=== PATIENT | male | born 1965 | race Two or more races ===

== ENCOUNTER 2017-01-09 14:55 | Inpatient (IN) | payer OTHER ==
[2017-01-09 16:06] VITALS: BMI 25.2
--- NOTE | 2017-01-09 17:38 | HP ---
CIWA Score - CIWA Score Nausea/Vomitin Muscle Tremors: 3 Anxiety: 3 Agitation: 3 Paroxysmal Sweats: 3 Orientation: 0-Oriented Tacttile Disturbances: 0-None Auditory Disturbances: 0-None Visual Disturbances: 0-None Headache: 2-Mild CIWA-Ar Total Score: 17 Admission ROS S - HPI Chief Complaint: alcohol withdrawal symptoms Allergies/Adverse Reactions: Allergies Allergy/AdvReac Type Severity Reaction Status Date / Time No Known Allergies Allergy Verified 01/09/17 17:21 History of Present Illness: 51 yo homeless m with h/o opioid use disordr on MMTP 110mg daily last day of medication today at [facility] requesting inpateint detoxification forma lcohol. Reports alcohol withdrwal syndrome when he stops drinking and has had withdrawal seizures in past. PMHX hep c, depression, schizoaffective do on medications. no suicidal ideation at this time ahas attempted suicide in past. longest sober while he was incarcerated. Pateint reorts falling on left hand/srist and is now c/o pain and swelling. woudl like to be admitted and start detox rather than go to ED for xray tonight. Advised of likelihood of fracture requirign orthopedic care. Exam Limitations: No Limitations - Ebola screening Have you traveled outside of the country in the last 21 days: No (N) Have you had contact with anyone from an Ebola affected area: No Have you been sick,other than usual withdrawal symptoms: No Do you have a fever: No - Review of Systems Constitutional: Chills, Diaphoresis, Changes in sleep, Unintentional Wgt. Loss EENT: reports: No Symptoms Reported Respiratory: reports: Other (chest tightness) Cardiac: reports: Palpitations, Chest Tightness GI: reports: Constipated, Nausea, Poor Appetite, Poor Fluid Intake, Indigestion , Abdominal cramping : reports: No Symptoms Reported Musculoskeletal: reports: Back Pain, Joint Pain, Joint Swelling, Joint Stiffness (fell on left arm) Integumentary: reports: Flushing, Sweating Neuro: reports: Headache, Numbness, Seizure (withdrawal seizure many years ago) , Tingling, Tremors Endocrine: reports: No Symptoms Reported Hematology: reports: No Symptoms Reported Psychiatric: reports: Judgement Intact, Mood/Affect Appropiate, Orientated x3, Anxious, Depressed Other Systems: Reviewed and Negative Patient History - Patient Medical History Hx Anemia: No Hx Asthma: Yes Hx Chronic Obstructive Pulmonary Disease (COPD): No Hx Cancer: No Hx Cardiac Disorders: No Hx Congestive Heart Failure: No Hx Hypertension: No Hx Hypercholesterolemia: No Hx Pacemaker: No HX Cerebrovascular Accident: No Hx Seizures: Yes (withdrawal seizures ) Hx Dementia: No Hx Diabetes: No Hx Gastrointestinal Disorders: No Hx Liver Disease: No Hx Genitourinary Disorders: No Hx Sexually Transmitted Disorders: No Hx Renal Disease (ESRD): No Hx Thyroid Disease: No Hx Human Immunodeficiency Virus (HIV): No Hx Hepatitis C: Yes Hx Depression: Yes Hx Suicide Attempt: No Hx Bipolar Disorder: Yes Hx Schizophrenia: Yes Other Medical History: schizoaffectiv e do no suicidal ideation - Patient Surgical History Past Surgical History: Yes Hx Neurologic Surgery: No Hx Cataract Extraction: No Hx Cardiac Surgery: No Hx Lung Surgery: No Hx Breast Surgery: No Hx Breast Biopsy: No Hx Abdominal Surgery: No Hx Appendectomy: Yes Hx Cholecystectomy: No Hx Genitourinary Surgery: No Hx Section: No Hx Orthopedic Surgery: Yes (fx left leg) Anesthesia Reaction: No - PPD History Previous Implant?: Yes Documented Results: Negative w/o proof Implanted On Prior [facility] Admission?: No PPD to be Administered?: Yes - Reproductive History Patient is a Female of Child Bearing Age (11 -55 yrs old): No Patient : No - Smoking Cessation Smoking history: Current every day smoker Have you smoked in the past 12 months: Yes Aproximately how many cigarettes per day: 20 Hx Chewing Tobacco Use: No Initiated information on smoking cessation: Yes 'Breaking Loose' booklet given: 01/09/17 - Substance & Tx. History Hx Alcohol Use: Yes Hx Substance Use: Yes Substance Use Type: Alcohol, Cocaine, Opiates, Prescribed, Tranquilizers Hx Substance Use Treatment: Yes (detox and rehab in past, MMTP at present) - Substances Abused Alcohol Route: Oral Frequency: Daily Amount used: 2 pints Age of first use: 19 Date of Last Use: 01/08/17 Crack Route: Smoking Frequency: 3-6 times per week Amount used: $30 Age of first use: 19 Date of Last Use: 01/08/17 Heroin Route: Inhalation Frequency: 3-6 times per week Amount used: various Age of first use: 18 Date of Last Use: 01/05/17 Family Disease History - Family Disease History Family Disease History: Other: Father (alcohol , cocaine), Mother Admission Physical Exam [facility] - Vital Signs Vital Signs: Vital Signs - 24 hr 01/09/17 15:59 Temperature 96.4 F L Pulse Rate 63 Respiratory 18 Rate Blood Pressure 109/73 - Physical General Appearance: Yes: Nourished, Appropriately Dressed, Disheveled, Mild Distress, Thin, Tremorous, Irritable, Sweating, Anxious HEENTM: Yes: Within Normal Limits, EOMI, Hearing grossly Normal, Normal ENT Inspection, Normocephalic, Normal Voice, JENNIFER, Pharynx Normal Respiratory: Yes: Within Normal Limits, Chest Non-Tender, Lungs Clear, Normal Breath Sounds, No Respiratory Distress, No Accessory Muscle Use Neck: Yes: Within Normal Limits, No masses,lesions,Nodules, Supple, Trachea in good position Breast: Yes: Breast Exam Deferred Cardiology: Yes: Within Normal Limits, Regular Rhythm, Regular Rate, S1, S2 Abdominal: Yes: Normal Bowel Sounds, Non Tender, Flat, Soft, Increased Bowel Sounds Genitourinary: Yes: Within Normal Limits Back: Yes: Within Normal Limits, Normal Inspection Musculoskeletal: Yes: Gait Steady, Pelvis Stable, Other (limited range of motion left wrist 2/2 pain) Extremities: Yes: Normal Capillary Refill, Normal Range of Motion, Tremors, Swelling (left wrist tenderness and swelling of forearm, liit rom, pain on movement 8/10) Neurological: Yes: peoplesoft hcm developer II-XII NML intact, Fully Oriented, Alert, Motor Strength 5/5, Normal Response, Depressed Affect Integumentary: Yes: Normal Color, Warm, Diaphoresis, Moist Lymphatic: Yes: Within Normal Limits - Addiitonal Findings: alcohol withdrawal sx, fx left wrist/forearm - Diagnostic (1) Alcohol dependence with uncomplicated withdrawal Current Visit: Yes Status: Acute (2) Opioid dependence on agonist therapy Current Visit: Yes Status: Acute (3) Nicotine dependence Current Visit: Yes Status: Acute (4) Schizoaffective disorder Current Visit: Yes Status: Acute (5) Wrist fracture, left Current Visit: Yes Status: Acute (6) Seizure Current Visit: Yes Status: Acute (7) Hepatitis C Current Visit: Yes Status: Acute (8) Crack cocaine use Current Visit: Yes Status: Acute Cleared for Admission [facility] - Detox or Rehab [facility] Level of Care: Medically Managed [facility]ox [facility] Breath Alcohol Content Breath Alcohol Content: 0 Urine Drug Screen - Results Drug Screen Negative: No Urine Drug Screen Results: ERIK-Cocaine, MTD-Methadone, TCA-Tricyclic Antidepress
[2017-01-09] MEDS ORDERED: chlordiazePOXIDE HCL 25 MG CAPSULE PO PRN (17:41)
[2017-01-09] MEDS ORDERED: LOPERAMIDE HCL 2 MG CAPSULE PO PRN (17:41)
[2017-01-09] MEDS ORDERED: MAGNESIUM HYDROX 2400MG/30ML ORAL SUSPENSION 30 ML CUP PO PRN (17:41)
[2017-01-09] MEDS ORDERED: guaiFENesin/D-METHORPHAN HB 10 ML UNIT-DOSE CUPS PO PRN (17:41)
[2017-01-09] MEDS ORDERED: MAG HYDROX/AL HYDROX/SIMETH 30 ML UNIT-DOSE CUP PO PRN (17:41)
[2017-01-09] MEDS ORDERED: MENTHOL/PHENOL 1 EACH UD MM PRN (17:41)
[2017-01-09] MEDS ORDERED: P-EPHED 60MG/TRIPROLIDI 2.5MG TABLET PO PRN (17:41)
[2017-01-09] MEDS ORDERED: NICOTINE POLACRILEX 4 MG GUM BC PRN (17:41)
[2017-01-09] MEDS ORDERED: MAGNESIUM CITRATE 300 ML BOTTLE PO PRN (17:41)
[2017-01-09] MEDS ORDERED: CYCLOBENZAPRINE HCL 10 MG TABLET (FP) PO PRN (17:43)
[2017-01-09] MEDS ORDERED: chlordiazePOXIDE HCL 25 MG CAPSULE PO ONE (18:15)
[2017-01-09] MEDS: NICOTINE 21 MG/24 HOURS TOPICAL PATCH TD SCH (18:32)
[2017-01-09] MEDS: PANTOPRAZOLE 40 MG TABLET (FP) PO SCH (18:32)
[2017-01-09] MEDS: ACETAMINOPHEN 325 MG TABLET (FP) PO PRN (18:34)
[2017-01-09] MEDS: DOCUSATE SODIUM 100 MG CAPSULE (FP) PO SCH (22:07)
[2017-01-09] MEDS: NAPROXEN 500 MG TABLET (FP) PO SCH (22:07)
[2017-01-09] MEDS: THIAMINE HCL 100 MG TABLET (FP) PO SCH (22:07)
[2017-01-09] MEDS: chlordiazePOXIDE HCL 25 MG CAPSULE PO SCH (22:07)
[2017-01-09 23:04] LABS: URINE APPEARANCE CLEAR; URINE BILIRUBIN NEGATIVE (NEGATIVE); URINE BLOOD NEGATIVE (NEGATIVE); URINE COLOR YELLOW; URINE GLUCOSE (UA) NEGATIVE (NEGATIVE); URINE KETONE NEGATIVE (NEGATIVE); URINE NITRITE NEGATIVE (NEGATIVE); URINE PROTEIN NEGATIVE (NEGATIVE); URINE UROBILINOGEN NEGATIVE mg/dL (0.2-1.0)
[2017-01-10] MEDS: ACETAMINOPHEN 325 MG TABLET (FP) PO PRN (05:05)
[2017-01-10] MEDS: chlordiazePOXIDE HCL 25 MG CAPSULE PO SCH ×4 (05:05→22:48)
[2017-01-10] MEDS ORDERED: METHADONE HCL 10 MG TABLET PO SCH (06:00)
[2017-01-10] MEDS ORDERED: METHADONE HCL 40 MG DISPERSABLE TABLET ONE (08:32)
[2017-01-10] MEDS ORDERED: METHADONE HCL 10 MG TABLET ONE (08:32)
[2017-01-10 09:59] LABS: MCH 30.4 pg (25.7-33.7); MCHC 33.4 g/dl (32.0-35.9); MEAN CELL VOLUME 91.1 fl (80-96); MEAN PLT VOLUME 8.1 fl (7.5-11.1); PLATELET COUNT 233 K/MM3 (134-434); RDW 13.6 % (11.9-15.9); WHITE BLOOD COUNT 9.7 K/mm3 (4.0-10.0)
[2017-01-10 10:05] LABS: ALBUMIN 3.5 g/dl (3.4-5.0); ANION GAP 4 (8-16); CALCIUM 8.3 mg/dL (8.5-10.1); CO2 30 mmol/L (21-32); CREATININE 0.6 mg/dL (0.7-1.3); GLUCOSE,RANDOM 83 mg/dL (74-106); SGOT/AST 40 U/L (15-37); SGPT/ALT 32 U/L (12-78)
[2017-01-10 10:07] LABS: ALK PHOS 107 U/L (45-117); BILIRUBIN,TOTAL 0.4 mg/dL (0.2-1.0); TOT PROT 6.6 g/dl (6.4-8.2)
--- NOTE | 2017-01-10 10:07 | PN ---
[facility] CIWA - CIWA Score Nausea/Vomitin-No Nausea/No Vomiting Muscle Tremors: 4-Moderate,w/Arms Extend Anxiety: 4-Mod. Anxious/Guarded Agitation: 4-Moderately Restless Paroxysmal Sweats: 1-Minimal Palms Moist Orientation: 0-Oriented Tacttile Disturbances: 3-Moderate Itch/Numb/Burn Auditory Disturbances: 0-None Visual Disturbances: 0-None Headache: 0-None Present CIWA-Ar Total Score: 16 S Progress Note (SOAP) Subjective: ANXIETY,SWEATS,TREMORS,IRRITABILITY, INTERMITTENT SLEEP. Objective: 01/10/17 10:07 Vital Signs Temperature 95.8 F L 01/10/17 09:01 Pulse Rate 61 01/10/17 09:01 Respiratory Rate 18 01/10/17 09:01 Blood Pressure 119/75 01/10/17 09:01 O2 Sat by Pulse Oximetry (%) Laboratory Last Values Sodium 139 mmol/L (136-145) 01/10/17 07:00 Potassium 4.2 mmol/L (3.5-5.1) 01/10/17 07:00 Chloride 105 mmol/L (98-107) 01/10/17 07:00 Carbon Dioxide 30 mmol/L (21-32) 01/10/17 07:00 Anion Gap 4 (8-16) L 01/10/17 07:00 BUN 13 mg/dL (7-18) 01/10/17 07:00 Creatinine 0.6 mg/dL (0.7-1.3) L 01/10/17 07:00 Creat Clearance w eGFR > 60 (>60) 01/10/17 07:00 Random Glucose 83 mg/dL (74-106) 01/10/17 07:00 Calcium 8.3 mg/dL (8.5-10.1) L 01/10/17 07:00 AST 40 U/L (15-37) H 01/10/17 07:00 ALT 32 U/L (12-78) 01/10/17 07:00 Albumin 3.5 g/dl (3.4-5.0) 01/10/17 07:00 Urine Color Yellow 01/09/17 15:50 Urine Appearance Clear 01/09/17 15:50 Urine pH 5.0 (5.0-8.0) 01/09/17 15:50 Ur Specific [place] 1.023 (1.001-1.035) 01/09/17 15:50 Urine Protein Negative (NEGATIVE) 01/09/17 15:50 Urine Glucose (UA) Negative (NEGATIVE) 01/09/17 15:50 Urine Ketones Negative (NEGATIVE) 01/09/17 15:50 Urine Blood Negative (NEGATIVE) 01/09/17 15:50 Urine Nitrite Negative (NEGATIVE) 01/09/17 15:50 Urine Bilirubin Negative (NEGATIVE) 01/09/17 15:50 Urine Urobilinogen Negative mg/dL (0.2-1.0) 01/09/17 15:50 Assessment: 01/10/17 10:07 WITHDRAWAL SX Plan: CONTINUE DETOX
[2017-01-10] MEDS: METHADONE 80 MG, METHADONE 30 MG PO SCH (10:12)
[2017-01-10] MEDS: NICOTINE 21 MG/24 HOURS TOPICAL PATCH TD SCH (10:13)
[2017-01-10] MEDS: NAPROXEN 500 MG TABLET (FP) PO SCH ×2 (10:13→22:40)
[2017-01-10] MEDS: PANTOPRAZOLE 40 MG TABLET (FP) PO SCH (10:13)
[2017-01-10] MEDS: PRENATAL VITAMINS W/ FOLIC ACID TABLET (FP) PO SCH (10:13)
[2017-01-10 11:34] LABS: URINE LEUK ESTERASE Negative (NEGATIVE)
[2017-01-10 11:58] LABS: SICKLE CELL SCREEN NEGATIVE (NEGATIVE)
--- NOTE | 2017-01-10 11:59 | PN ---
[facility] Progress Note Note: PT TO BE TRANSFERED TO [facility] FOR ORTHOPEDIC EVALUATION AND TREATMENT OF FRACTURE LEFT DISTAL RADIUS PER XRAY REPORT DONE TODAY. ADDENDUM: PT WAS ADMITTED YESTERDAY WITH LEFT FOREARM SWELLING AND REDNESS DUE TO REPORTED FALL PRIOR TO COMING INTO DETOX(SEE ADMISSION H/P). XRAY ORDERED ON ADMISSION WAS DONE TODAY WITH ABOVE FINDINGS. SPOKE TO DR ARREDONDO AT [facility] ON PATIENTS CASE. TRANSFER BY AMBULANCE FOR ORTHOPEDIC CONSULT. PT MAY RETURN TO [facility] TO CONTINUE DETOX IF CLEARED TO DO SO.
[2017-01-10] MEDS ORDERED: PNEUMOC 13-VAL CONJ-DIP CRM/PF 0.5 ML DISP.SYRIN IM ONE (12:00)
--- NOTE | 2017-01-10 13:08 | EKG ---
Test Reason : Blood Pressure : / mmHG Vent. Rate : 061 BPM Atrial Rate : 061 BPM P-R Int : 166 ms QRS Dur : 088 ms QT Int : 464 ms P-R-T Axes : 080 -12 056 degrees QTc Int : 467 ms NORMAL SINUS RHYTHM NORMAL ECG NO PREVIOUS ECGS AVAILABLE Confirmed by HERSON STANLEY MD ([id number]) on 01/10/2017 1:08:09 PM Referred By: Confirmed By:HERSON STANLEY MD
--- NOTE | 2017-01-10 13:35 | PN ---
[facility] Progress Note Note: Platform Builder approached patient bedside and noticed patient was not inside his room. Platform Builder attempted to located patient but was informed by staff that patient was transferred to [facility].
[2017-01-10] MEDS: DOCUSATE SODIUM 100 MG CAPSULE (FP) PO SCH (22:20)
[2017-01-10] MEDS: THIAMINE HCL 100 MG TABLET (FP) PO SCH (22:48)
[2017-01-11] MEDS ORDERED: METHADONE HCL 10 MG TABLET ONE (02:56)
[2017-01-11] MEDS ORDERED: METHADONE HCL 40 MG DISPERSABLE TABLET ONE (02:57)
[2017-01-11] MEDS: chlordiazePOXIDE HCL 25 MG CAPSULE PO SCH ×3 (05:09→17:21)
[2017-01-11] MEDS: METHADONE 80 MG, METHADONE 30 MG PO SCH (05:10)
[2017-01-11] MEDS: NICOTINE 21 MG/24 HOURS TOPICAL PATCH TD SCH (10:10)
[2017-01-11] MEDS: PANTOPRAZOLE 40 MG TABLET (FP) PO SCH (10:10)
[2017-01-11] MEDS: PRENATAL VITAMINS W/ FOLIC ACID TABLET (FP) PO SCH (10:10)
[2017-01-11] MEDS: NAPROXEN 500 MG TABLET (FP) PO SCH ×2 (10:10→22:12)
--- NOTE | 2017-01-11 10:10 | PN ---
[facility] CIWA - CIWA Score Nausea/Vomitin-No Nausea/No Vomiting Muscle Tremors: 4-Moderate,w/Arms Extend Anxiety: 4-Mod. Anxious/Guarded Agitation: 4-Moderately Restless Paroxysmal Sweats: 1-Minimal Palms Moist Orientation: 0-Oriented Tacttile Disturbances: 3-Moderate Itch/Numb/Burn Auditory Disturbances: 0-None Visual Disturbances: 0-None Headache: 0-None Present CIWA-Ar Total Score: 16 S Progress Note (SOAP) Subjective: ANXIETY,SWEATS, TREMORS, SWEATS. PT CAME BACK YESTERDAY FROM [facility] WITH A CAST ON LEFT ARM. NAD. Objective: 01/11/17 10:09 Vital Signs Temperature 97.0 F L 01/11/17 06:01 Pulse Rate 58 L 01/11/17 06:01 Respiratory Rate 16 01/11/17 06:01 Blood Pressure 99/65 01/11/17 06:01 O2 Sat by Pulse Oximetry (%) Laboratory Last Values WBC 9.7 K/mm3 (4.0-10.0) 01/10/17 07:00 RBC 3.74 M/mm3 (4.00-5.60) L 01/10/17 07:00 Hgb 11.4 GM/dL (11.7-16.9) L 01/10/17 07:00 Hct 34.1 % (35.4-49) L 01/10/17 07:00 MCV 91.1 fl (80-96) 01/10/17 07:00 MCH 30.4 pg (25.7-33.7) 01/10/17 07:00 MCHC 33.4 g/dl (32.0-35.9) 01/10/17 07:00 RDW 13.6 % (11.9-15.9) 01/10/17 07:00 Plt Count 233 K/MM3 (134-434) 01/10/17 07:00 MPV 8.1 fl (7.5-11.1) 01/10/17 07:00 Sickle Cell Screen Negative (NEGATIVE) 01/10/17 07:00 Sodium 139 mmol/L (136-145) 01/10/17 07:00 Potassium 4.2 mmol/L (3.5-5.1) 01/10/17 07:00 Chloride 105 mmol/L (98-107) 01/10/17 07:00 Carbon Dioxide 30 mmol/L (21-32) 01/10/17 07:00 Anion Gap 4 (8-16) L 01/10/17 07:00 BUN 13 mg/dL (7-18) 01/10/17 07:00 Creatinine 0.6 mg/dL (0.7-1.3) L 01/10/17 07:00 Creat Clearance w eGFR > 60 (>60) 01/10/17 07:00 Random Glucose 83 mg/dL (74-106) 01/10/17 07:00 Calcium 8.3 mg/dL (8.5-10.1) L 01/10/17 07:00 Total Bilirubin 0.4 mg/dL (0.2-1.0) 01/10/17 07:00 AST 40 U/L (15-37) H 01/10/17 07:00 ALT 32 U/L (12-78) 01/10/17 07:00 Alkaline Phosphatase 107 U/L (45-117) 01/10/17 07:00 Total Protein 6.6 g/dl (6.4-8.2) 01/10/17 07:00 Albumin 3.5 g/dl (3.4-5.0) 01/10/17 07:00 Urine Color Yellow 01/09/17 15:50 Urine Appearance Clear 01/09/17 15:50 Urine pH 5.0 (5.0-8.0) 01/09/17 15:50 Ur Specific [place] 1.023 (1.001-1.035) 01/09/17 15:50 Urine Protein Negative (NEGATIVE) 01/09/17 15:50 Urine Glucose (UA) Negative (NEGATIVE) 01/09/17 15:50 Urine Ketones Negative (NEGATIVE) 01/09/17 15:50 Urine Blood Negative (NEGATIVE) 01/09/17 15:50 Urine Nitrite Negative (NEGATIVE) 01/09/17 15:50 Urine Bilirubin Negative (NEGATIVE) 01/09/17 15:50 Urine Urobilinogen Negative mg/dL (0.2-1.0) 01/09/17 15:50 Ur Leukocyte Esterase Negative (NEGATIVE) 01/09/17 15:50 RPR Titer Nonreactive (NONREACTIVE) 01/10/17 07:00 Assessment: 01/11/17 10:10 WITHDRAWAL SX Plan: CONTINUE DETOX
[2017-01-11] MEDS: DOCUSATE SODIUM 100 MG CAPSULE (FP) PO SCH (22:11)
[2017-01-11] MEDS: THIAMINE HCL 100 MG TABLET (FP) PO SCH (22:12)
[2017-01-11] MEDS: chlordiazePOXIDE 5 MG CAPSULE PO SCH (22:12)
[2017-01-11] MEDS: hydrOXYzine PAMOATE 50 MG CAPSULE (FP) PO PRN (22:16)
[2017-01-12] MEDS ORDERED: METHADONE HCL 10 MG TABLET ONE (04:23)
[2017-01-12] MEDS ORDERED: METHADONE HCL 40 MG DISPERSABLE TABLET ONE (04:24)
[2017-01-12] MEDS: METHADONE 80 MG, METHADONE 30 MG PO SCH (05:44)
[2017-01-12] MEDS: chlordiazePOXIDE 5 MG CAPSULE PO SCH ×3 (05:46→17:31)
[2017-01-12] MEDS: NICOTINE 21 MG/24 HOURS TOPICAL PATCH TD SCH (10:34)
[2017-01-12] MEDS: NAPROXEN 500 MG TABLET (FP) PO SCH ×2 (10:35→22:11)
[2017-01-12] MEDS: PRENATAL VITAMINS W/ FOLIC ACID TABLET (FP) PO SCH (10:35)
[2017-01-12] MEDS: PANTOPRAZOLE 40 MG TABLET (FP) PO SCH (10:35)
--- NOTE | 2017-01-12 15:03 | PN ---
[facility] Progress Note (SOAP) Subjective: Fatigue, Tremors, Sweating. Objective: PT. A & O X 2 (UNCERTAIN ABOUT CURRENT LOCATION). PT. OBSERVED AMBULATING ON UNIT. NO ACUTE DISTRESS. 01/12/17 15:00 Vital Signs Temperature 96.2 F L 01/12/17 13:04 Pulse Rate 77 01/12/17 13:04 Respiratory Rate 18 01/12/17 13:04 Blood Pressure 105/74 01/12/17 13:04 O2 Sat by Pulse Oximetry (%) Laboratory Tests 01/09/17 01/10/17 01/10/17 15:50 07:00 07:00 WBC 9.7 RBC 3.74 L Hgb 11.4 L Hct 34.1 L MCV 91.1 MCH 30.4 MCHC 33.4 RDW 13.6 Plt Count 233 MPV 8.1 Sickle Cell Screen Negative Sodium 139 Potassium 4.2 Chloride 105 Carbon Dioxide 30 Anion Gap 4 L BUN 13 Creatinine 0.6 L Creat Clearance w eGFR > 60 Random Glucose 83 Calcium 8.3 L Total Bilirubin 0.4 AST 40 H ALT 32 Alkaline Phosphatase 107 Total Protein 6.6 Albumin 3.5 Urine Color Yellow Urine Appearance Clear Urine pH 5.0 Ur Specific [place] 1.023 Urine Protein Negative Urine Glucose (UA) Negative Urine Ketones Negative Urine Blood Negative Urine Nitrite Negative Urine Bilirubin Negative Urine Urobilinogen Negative Ur Leukocyte Esterase Negative RPR Titer 01/10/17 07:00 WBC RBC Hgb Hct MCV MCH MCHC RDW Plt Count MPV Sickle Cell Screen Sodium Potassium Chloride Carbon Dioxide Anion Gap BUN Creatinine Creat Clearance w eGFR Random Glucose Calcium Total Bilirubin AST ALT Alkaline Phosphatase Total Protein Albumin Urine Color Urine Appearance Urine pH Ur Specific [place] Urine Protein Urine Glucose (UA) Urine Ketones Urine Blood Urine Nitrite Urine Bilirubin Urine Urobilinogen Ur Leukocyte Esterase RPR Titer Nonreactive LABS NOTED. Assessment: 01/12/17 15:01 WITHDRAWAL SYMPTOMS. Plan: CONTINUE DETOX. INCREASE DAILY PO FLUID INTAKE.
[2017-01-12] MEDS: hydrOXYzine PAMOATE 50 MG CAPSULE (FP) PO PRN (17:33)
[2017-01-12] MEDS: ACETAMINOPHEN 325 MG TABLET (FP) PO PRN (17:36)
--- NOTE | 2017-01-12 18:46 | CONSULT ---
[facility] Psychiatric Consult - Data Date of interview: 01/12/17 Admission source: [facility] Identifying data: First admission to [facility] for this 51 y/o male seeking detox treatment on for alcohol,cocaine,heroin and xanax dependence.Patient is single,a father of one,homeless,unemployed and supported on food stamps. Substance Abuse History: confirmed by patient.See current [facility] report for details : Smoking history: Current every day smoker. Have you smoked in the past 12 months: Yes. Aproximately how many cigarettes per day: 20. Hx Chewing Tobacco Use: No. Initiated information on smoking cessation: Yes. 'Breaking Loose' booklet given: 01/09/17. - Substance & Tx. History. Hx Alcohol Use: Yes. Hx Substance Use: Yes. Substance Use Type: Alcohol, Cocaine, Opiates, Prescribed, Tranquilizers. Hx Substance Use Treatment: Yes (detox and rehab in past, [facility] at present). - Substances Abused. Alcohol. Route: Oral. Frequency: Daily. Amount used: 2 pints. Age of first use: 19. Date of Last Use: 01/08/17. Crack. Route: Smoking. Frequency: 3-6 times per week. Amount used: $30. Age of first use: 19. Date of Last Use: 01/08/17. Heroin. Route: Inhalation. Frequency: 3-6 times per week. Amount used: various. Age of first use: 18. Date of Last Use: 01/05/17 Medical History: Hepatitis C,seizures (withdrawal-related),bronchial asthma,and a history of appendectomy.Treated at [facility] on 01/10/17 for a fracture of left distal radius (sustained in a fall in the street prior to this [facility] visit) .Extremity kept in Ortho-Glass splint / Ortho-Glass sling in place. Psychiatric History: Patient denies history of psychiatric hospitalizations.He, however,endorses the diagnosis of Schizoaffective Disorder and treatment maintenance on seroquel 300 mg/hs + remeron 15 mg/hs.Mr Dolan reports that he gets his psychiatric outpatient services at [facility] ([facility]) in [facility].Medications are confirmed via survey of recent pharmacy claims of 12/04/16 at [facility] [employer].Patient is currently on methadone maintenance (110 mg/day).Noted self-report of a remote history of suicide attempt (hanging years ago). Physical/Sexual Abuse/Trauma History: No reported history of abuse. Additional Comment: Drug screen is negative. Mental Status Exam - Mental Status Exam Alert and Oriented to: Time, Place, Person Cognitive Function: Good Patient Appearance: Well Groomed (left forearm wrapped in Ortho-Glass splint and Ortho-Glass sling in place) Mood: Anxious (fearful of missing his doses of seroquel + remeron), Hopeful Affect: Appropriate, Mood Congruent Patient Behavior: Fatigued, Appropriate, Cooperative Speech Pattern: Clear, Appropriate (maltese-speaking) Voice Loudness: Normal Thought Process: Intact, Goal Oriented Thought Disorder: Not Present Hallucinations: Denies Suicidal Ideation: Denies Homicidal Ideation: Denies Insight/Judgement: Fair Sleep: Poorly, Difficulty falling asleep Appetite: Good Muscle strength/Tone: Normal Gait/Station: Normal Psychiatric Findings - Problem List ([place] 1, 2,3) (1) Alcohol dependence with uncomplicated withdrawal Current Visit: Yes Status: Acute (2) Opioid dependence on agonist therapy Current Visit: Yes Status: Acute (3) Nicotine dependence Current Visit: Yes Status: Acute Qualifiers: Nicotine product type: cigarettes Substance use status: in withdrawal Qualified Code(s): F17.213 - Nicotine dependence, cigarettes, with withdrawal (4) Schizoaffective disorder Current Visit: Yes Status: Chronic Comment: As per self-report.On medications.Well documented OPD care : appointment card seen. (5) Insomnia Current Visit: Yes Status: Acute - Initial Treatment Plan Initial Treatment Plan: Psychoeducation.Sleep hygiene discussed with patient.Detoxification in effect.Medications (verified) : seroquel 200 mg po hs + remeron 7.5 mg po hs (both does are reduced as caution for for oversedation) .Side effects/benefits of both medications reviewed with patient.He is in agreement with this plan of care.Observation.
[2017-01-12] MEDS ORDERED: QUEtiapine FUMARATE 200 MG TABLET PO SCH (22:00)
[2017-01-12] MEDS: chlordiazePOXIDE HCL 10 MG CAPSULE PO SCH (22:11)
[2017-01-12] MEDS: THIAMINE HCL 100 MG TABLET (FP) PO SCH (22:11)
[2017-01-12] MEDS: DOCUSATE SODIUM 100 MG CAPSULE (FP) PO SCH (22:11)
[2017-01-13] MEDS ORDERED: METHADONE HCL 40 MG DISPERSABLE TABLET ONE (03:21)
[2017-01-13] MEDS ORDERED: METHADONE HCL 10 MG TABLET ONE (03:21)
[2017-01-13] MEDS: METHADONE 80 MG, METHADONE 30 MG PO SCH (05:35)
[2017-01-13] MEDS: chlordiazePOXIDE HCL 10 MG CAPSULE PO SCH ×2 (05:57→10:06)
[2017-01-13] MEDS: PRENATAL VITAMINS W/ FOLIC ACID TABLET (FP) PO SCH (10:04)
[2017-01-13] MEDS: NAPROXEN 500 MG TABLET (FP) PO SCH (10:05)
[2017-01-13] MEDS: PANTOPRAZOLE 40 MG TABLET (FP) PO SCH (10:05)
[2017-01-13] MEDS: NICOTINE 21 MG/24 HOURS TOPICAL PATCH TD SCH (10:05)
--- NOTE | 2017-01-13 10:30 | DS ---
[facility] Detox Discharge Summary Admission Date: 01/09/17 Discharge Date: 01/13/17 - History Present History: Alcohol Dependence, Cocaine Dependence, MMTP Pertinent Past History: asthma, Hep c, drug induced seizures - Physical Exam Results Vital Signs: Vital Signs Temperature 96.3 F L 01/13/17 06:20 Pulse Rate 85 01/13/17 06:20 Respiratory Rate 18 01/13/17 06:20 Blood Pressure 117/81 01/13/17 06:20 O2 Sat by Pulse Oximetry (%) Pertinent Admission Physical Exam Findings: Withdrawal symptoms Laboratory Last Values WBC 9.7 K/mm3 (4.0-10.0) 01/10/17 07:00 RBC 3.74 M/mm3 (4.00-5.60) L 01/10/17 07:00 Hgb 11.4 GM/dL (11.7-16.9) L 01/10/17 07:00 Hct 34.1 % (35.4-49) L 01/10/17 07:00 MCV 91.1 fl (80-96) 01/10/17 07:00 MCH 30.4 pg (25.7-33.7) 01/10/17 07:00 MCHC 33.4 g/dl (32.0-35.9) 01/10/17 07:00 RDW 13.6 % (11.9-15.9) 01/10/17 07:00 Plt Count 233 K/MM3 (134-434) 01/10/17 07:00 MPV 8.1 fl (7.5-11.1) 01/10/17 07:00 Sickle Cell Screen Negative (NEGATIVE) 01/10/17 07:00 Sodium 139 mmol/L (136-145) 01/10/17 07:00 Potassium 4.2 mmol/L (3.5-5.1) 01/10/17 07:00 Chloride 105 mmol/L (98-107) 01/10/17 07:00 Carbon Dioxide 30 mmol/L (21-32) 01/10/17 07:00 Anion Gap 4 (8-16) L 01/10/17 07:00 BUN 13 mg/dL (7-18) 01/10/17 07:00 Creatinine 0.6 mg/dL (0.7-1.3) L 01/10/17 07:00 Creat Clearance w eGFR > 60 (>60) 01/10/17 07:00 Random Glucose 83 mg/dL (74-106) 01/10/17 07:00 Calcium 8.3 mg/dL (8.5-10.1) L 01/10/17 07:00 Total Bilirubin 0.4 mg/dL (0.2-1.0) 01/10/17 07:00 AST 40 U/L (15-37) H 01/10/17 07:00 ALT 32 U/L (12-78) 01/10/17 07:00 Alkaline Phosphatase 107 U/L (45-117) 01/10/17 07:00 Total Protein 6.6 g/dl (6.4-8.2) 01/10/17 07:00 Albumin 3.5 g/dl (3.4-5.0) 01/10/17 07:00 Urine Color Yellow 01/09/17 15:50 Urine Appearance Clear 01/09/17 15:50 Urine pH 5.0 (5.0-8.0) 01/09/17 15:50 Ur Specific [place] 1.023 (1.001-1.035) 01/09/17 15:50 Urine Protein Negative (NEGATIVE) 01/09/17 15:50 Urine Glucose (UA) Negative (NEGATIVE) 01/09/17 15:50 Urine Ketones Negative (NEGATIVE) 01/09/17 15:50 Urine Blood Negative (NEGATIVE) 01/09/17 15:50 Urine Nitrite Negative (NEGATIVE) 01/09/17 15:50 Urine Bilirubin Negative (NEGATIVE) 01/09/17 15:50 Urine Urobilinogen Negative mg/dL (0.2-1.0) 01/09/17 15:50 Ur Leukocyte Esterase Negative (NEGATIVE) 01/09/17 15:50 RPR Titer Nonreactive (NONREACTIVE) 01/10/17 07:00 Labs noted - Treatment Hospital Course: Detox Protocol Followed, Detoxed Safely, Responded well, Discharged Condition Good, Rehab Referral Accepted Patient has Accepted a Rehab Referral to: [facility] - Medication Discharge Medications: Ambulatory Orders Mirtazapine [Remeron -] 15 mg PO HS #30 tablet 01/12/17 Quetiapine Fumarate [Seroquel -] 300 mg PO HS #30 tab 01/12/17 - Diagnosis (1) Alcohol dependence with uncomplicated withdrawal Current Visit: Yes Status: Acute (2) Crack cocaine use Current Visit: Yes Status: Acute (3) Insomnia Current Visit: Yes Status: Chronic (4) Nicotine dependence Current Visit: Yes Status: Acute Qualifiers: Nicotine product type: cigarettes Substance use status: in withdrawal Qualified Code(s): F17.213 - Nicotine dependence, cigarettes, with withdrawal (5) Opioid dependence on agonist therapy Current Visit: Yes Status: Acute (6) Wrist fracture, left Current Visit: Yes Status: Acute Qualifiers: Encounter type: subsequent encounter (7) Hepatitis C Current Visit: No Status: Chronic Qualifiers: Viral hepatitis chronicity: chronic (8) Schizoaffective disorder Current Visit: Yes Status: Chronic (9) Fracture, radius, distal Current Visit: No Status: Acute Qualifiers: Encounter type: initial encounter Fracture type: closed Fracture morphology: unspecified fracture morphology Laterality: left Qualified Code( s): S52.502A - Unspecified fracture of the lower end of left radius, initial encounter for closed fracture - AMA Did Patient Leave Against Medical Advice: No
[2017-01-13 13:31] VITALS: BP 131/88; PULSE 89; TEMP 96.2
== END 2017-01-13 14:04 | disposition home or self-care (01) | DRG 773 ==
LOC: YASAS 14:55 → Y3N 17:34
PROVIDERS: ADMIT Internal Medicine; ATTEND Internal Medicine
PROC: HZ2ZZZZ Detoxification Services for Substance Abuse Treatment (ICD-10-PCS; principal; 2017-01-09)
DX: F11.20 Opioid dependence, uncomplicated (principal); F10.230 Alcohol dependence with withdrawal, uncomplicated; F14.10 Cocaine abuse, uncomplicated; F17.213 Nicotine dependence, cigarettes, with withdrawal; F25.9 Schizoaffective disorder, unspecified; B18.2 Chronic viral hepatitis C; G47.00 Insomnia, unspecified; R56.9 Unspecified convulsions; S52.502A Unspecified fracture of the lower end of left radius, initial encounter for closed fracture
CPT/HCPCS: 36415; 73110-TC-LT; 73130-TC-LT; 80053; 81003; 85027; 85660; 86593; 93005; 93010

== ENCOUNTER 2017-01-10 13:16 | Emergency (ER) | payer OTHER ==
[2017-01-10 13:31] VITALS: BP 126/55; PULSE 62; TEMP 98; BMI 25.8
--- NOTE | 2017-01-10 14:37 | PDOC ---
History of Present Illness - General Chief Complaint: Injury Stated Complaint: INJURY Time Seen by Provider: 01/10/17 14:23 History Source: Patient Exam Limitations: No Limitations - History of Present Illness Initial Comments: 01/10/17 16:11 My chief complaint: Fall on 01/08/17 with left arm stretched out behind him complaining of left hand wrist and forearm pain History of present: Patient is a 51-year-old male sent here from [address] [place] [address] from detox due to patient complaining of the left hand and wrist and forearm pain since falling on 01/08/2017 prior to arrival to detox when he was playing basketball with his left arm stretched outward behind him bracing his fall. Patient has significant swelling of left hand and left wrist and distal forearm.Pt. reports tingling of left fingers. Occurred: reports: other (01/08/17) Severity: reports: severe (LEFT HAND, WRIST, FOREARM) Pain Location: reports: upper extremity (LEFT HAND, WRIST, FOREARM) Method of Injury: Yes: fall (WITH LEFT HAND STRETCHED OUT BEHIND HIM ) Modifying Factors: improves with: None Loss of Consciousness: no loss of consciousness Associated Symptoms (Fall): denies symptoms Past History - Past Medical History Allergies/Adverse Reactions: Allergies Allergy/AdvReac Type Severity Reaction Status Date / Time No Known Allergies Allergy Verified 01/10/17 13:23 Home Medications: Ambulatory Orders Unobtainable [Unobtainable] 01/09/17 Anemia: No Asthma: Yes Cancer: No Cardiac Disorders: No CVA: No COPD: No CHF: No DVT: No Dementia: No Diabetes: No GI Disorders: No Disorders: No HTN: No Hypercholesterolemia: No Kidney Stones: No Liver Disease: No Seizures: Yes (withdrawal seizures ) Thyroid Disease: No - Surgical History Abdominal Surgery: No Appendectomy: Yes Cardiac Surgery: No Cholecystectomy: No Lung Surgery: No Neurologic Surgery: No Orthopedic Surgery: Yes (fx left leg) - Reproductive History Testicular Surgery: No - Suicide/Smoking/Psychosocial Hx Smoking History: Never smoked Have you smoked in the past 12 months: Yes Number of Cigarettes Smoked Daily: 20 Information on smoking cessation initiated: Yes 'Breaking Loose' booklet given: 01/09/17 Hx Alcohol Use: Yes Drug/Substance Use Hx: Yes Substance Use Type: Alcohol, Cocaine, Opiates, Prescribed, Tranquilizers Hx Substance Use Treatment: Yes (detox and rehab in past, [facility] at present) Trauma Specific PMHX - Complaint Specific PMHX Arthritis: No Review of Systems - Review of Systems Able to Perform ROS?: Yes Constitutional: No: Symptoms Reported HEENTM: No: Symptoms Reported Respiratory: No: Symptoms reported Cardiac (ROS): No: Symptoms Reported ABD/GI: No: Symptoms Reported : No: Symptoms Reported Musculoskeletal: Yes: Joint Pain (LEFT HAND, WRIST, FOREARM ), Joint Swelling ( LEFT HAND, WRIST, FOREARM) Integumentary: Yes: Erythema (WITH SWELLING LEFT HAND, DORSAL WRIST TO MID FOREARM ) Neurological: No: Symptoms reported *Physical Exam - Vital Signs Last Vital Signs Temp Pulse Resp BP Pulse Ox 98 F 62 18 126/55 98 01/10/17 13:18 01/10/17 13:18 01/10/17 13:18 01/10/17 13:18 01/10/17 13:18 Procedures - Splinting Splint Location: Left: Hand, Wrist, Forearm Pre-Proc Neuro Vasc Exam: normal Hand-Made Type: orthoglass Splint Type: Yes: Short Arm (VOLAR/DORSAL LEFT WRIST/ FOREARM ) Post-Proc Neuro Vasc Exam: normal Dylan Bandage: 3" Sling: Yes (LEFT ) Medical Decision Making - Medical Decision Making 01/10/17 16:14 Patient is a 51-year-old male sent here from [address] [place] [address] from detox due to patient complaining of the left hand and wrist and forearm pain since falling on 01/08/2017 prior to arrival to detox when he was playing basketball with his left arm stretched outward behind him bracing his fall. Patient has significant swelling of left hand and left wrist and distal forearm.Pt. reports tingling of left fingers. r/o FRACTURE LEFT HAND, WRIST, FOREARM PLAN: XRAY RT. HAND/WRIST COMPACTED FRACTURE OF DISTAL RADIUS NON DISPLACED PER DR. EPSTEIN XRAY RT. FOREARM NO FRACTURE PER DR. DAVIS VOLAR/DORSAL ORTHOGLASS SPLINT APPLIED WITH ORTHOGLASS/SLING FOLLOW UP WITH ORTHOPEDIST TOMORROW FOR FURTHER EVALUATION *DC/Admit/Observation/Transfer Diagnosis at time of Disposition: Fracture, radius, distal Qualifiers: Encounter type: initial encounter Fracture type: closed Fracture morphology: unspecified fracture morphology Laterality: left Qualified Code(s): S52.502A - Unspecified fracture of the lower end of left radius, initial encounter for closed fracture - Discharge Dispostion Disposition: HOME Condition at time of disposition: Stable - Referrals Referrals: Aakash Vyas MD [Staff Physician] - - Patient Instructions Additional Instructions: Keep Ortho-Glass splint in place on left arm and use sling during the day may elevate arm on pillow at night Follow up with orthopedist ON 01/15/17 CALL FOR APPOINTMENT Apply ice to left wrist forearm every hour for 15 minutes while awake today and tomorrow Return to emergency room if numbness of left hand or increased swelling of fingers or discoloration of fingers Take acetaminophen as previously prescribed for pain. PATIENT VOICED UNDERSTANDING OF DISCHARGE INSTRUCTIONS AND ALL QUESTIONS WERE ANSWERED - Post Discharge Activity
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
== END 2017-01-10 16:44 | disposition home or self-care (01) ==
LOC: JERFT 13:16
DX: S52.502A Unspecified fracture of the lower end of left radius, initial encounter for closed fracture (principal); W18.39XA Other fall on same level, initial encounter; Y93.67 Activity, basketball; Y92.310 Basketball court as the place of occurrence of the external cause; Y99.8 Other external cause status; F10.20 Alcohol dependence, uncomplicated; F13.20 Sedative, hypnotic or anxiolytic dependence, uncomplicated; F14.20 Cocaine dependence, uncomplicated
CPT/HCPCS: 73090-TC-LT; 73110-TC-LT; 73130-TC-LT; 99281-25